=== PATIENT | male | born 1960 ===

== ENCOUNTER → 2017-05-22 | Outpatient (CLI) | payer BC ==
[2017-05-22 09:31] LABS: Basophils % (A) 1 %; CH 31.9; CHCM 33.7; Eosinophils # (A) 0.7 k/uL (0-0.7); Eosinophils % (A) 9 %; HCT 45.4 % (39.0-53.0); HDW 2.52; HGB 15.4 gm/dL (13.0-17.5); Luc # (Auto) 0.17; Luc % (Auto) 2; Lymphocytes % (A) 27 %; MCH 32.3 pg (25.0-35.0); Mean Platelet Volume 8.1; Monocytes # (A) 0.3 k/uL (0-1.0); Monocytes % (A) 5 %; Neutrophils # (A) 4.2 k/uL (1.3-7.7); Neutrophils % (A) 57 %; RBC 4.78 m/uL (4.30-5.90); RDW 12.4 % (11.5-15.5); WBC 7.4 k/uL (3.8-10.6); WBC (Perox) 7.59
[2017-05-22 11:03] LABS: Erythrocyte Sedimentation Rate 14 mm/hr (0-15)
[2017-05-22 11:10] LABS: ALT 43 U/L (21-72); AST 27 U/L (17-59); Alkaline Phosphatase 82 U/L (38-126); Anion Gap 9 mmol/L; Blood Urea Nitrogen 15 mg/dL (9-20); Calcium 9.7 mg/dL (8.4-10.2); Carbon Dioxide 29 mmol/L (22-30); Chloride 105 mmol/L (98-107); Cholesterol 159 mg/dL (<200); Glucose 128 mg/dL (74-99); HDL Cholesterol 55 mg/dL (40-60); Non-African American GFR(MDRD) >60 (>60 ml/min/1.73 sqM); Sodium 143 mmol/L (137-145); Total Bilirubin 0.8 mg/dL (0.2-1.3); Total Protein 7.4 g/dL (6.3-8.2); Triglycerides 102 mg/dL (<150)
[2017-05-22 11:50] LABS: Prostate Specific Antigen 0.99 ng/mL (0.00-4.00)
[2017-05-22 12:49] LABS: Hemoglobin A1C 7.4 % (4.2-6.1)
== END ==
LOC: LABWHC1 09:19
PROVIDERS: ATTEND Internal Medicine
DX: E78.2 Mixed hyperlipidemia (principal); R53.83 Other fatigue; E11.9 Type 2 diabetes mellitus without complications; R39.12 Poor urinary stream
CPT/HCPCS: 36415; 80053; 80061; 83036; 84153; 85025; 85652

== ENCOUNTER → 2017-10-07 | Outpatient (CLI) | payer BC ==
--- NOTE | 2017-10-07 12:57 | XR ---
Left leg HISTORY: Pain 2 views of the left leg on 3 images Bone mineralization and alignment maintained. Osteoarthritic change noted especially in the medial ar m of the left knee. Question soft tissue swelling. IMPRESSION: Osteoarthritis, correlate for soft tissue swelling.
== END | disposition home or self-care (01) ==
LOC: RADXRMAIN 10:50
PROVIDERS: ATTEND Internal Medicine
DX: M17.12 Unilateral primary osteoarthritis, left knee (principal)

== ENCOUNTER → 2017-11-20 | Outpatient (CLI) | payer BC ==
[2017-11-20 18:21] LABS: Hemoglobin A1C 7.4 % (4.0-6.0)
== END | disposition home or self-care (01) ==
LOC: LABWHC1 08:05
PROVIDERS: ATTEND Internal Medicine
DX: E11.9 Type 2 diabetes mellitus without complications (principal); E78.5 Hyperlipidemia, unspecified
CPT/HCPCS: 36415; 82043; 82570; 83036

== ENCOUNTER → 2018-06-11 | Outpatient (CLI) | payer BC, OTHER ==
[2018-06-11 08:53] LABS: HCT 45.3 % (39.0-53.0); HGB 14.7 gm/dL (13.0-17.5); MCH 30.3 pg (25.0-35.0); MCHC 32.4 g/dL (31.0-37.0); MCV 93.7 fL (80.0-100.0); Mean Platelet Volume 7.1; Platelet Count 169 k/uL (150-450); RBC 4.84 m/uL (4.30-5.90); RDW 12.3 % (11.5-15.5); WBC 5.8 k/uL (3.8-10.6)
[2018-06-11 09:09] LABS: ALT 32 U/L (21-72); AST 26 U/L (17-59); Albumin 4.4 g/dL (3.5-5.0); Alkaline Phosphatase 81 U/L (38-126); Anion Gap 7 mmol/L; Blood Urea Nitrogen 12 mg/dL (9-20); Calcium 10.1 mg/dL (8.4-10.2); Carbon Dioxide 32 mmol/L (22-30); Chloride 104 mmol/L (98-107); Cholesterol 142 mg/dL (<200); Glucose 136 mg/dL (74-99); HDL Cholesterol 55 mg/dL (40-60); LDL Cholesterol,Calculated 65 mg/dL (0-99); Sodium 143 mmol/L (137-145); Total Bilirubin 0.9 mg/dL (0.2-1.3); Total Protein 7.2 g/dL (6.3-8.2); Triglycerides 109 mg/dL (<150)
[2018-06-11 09:39] LABS: Prostate Specific Antigen 1.08 ng/mL (0.00-4.00)
[2018-06-11 10:09] LABS: Erythrocyte Sedimentation Rate 9 mm/hr (0-15)
[2018-06-11 17:20] LABS: Hemoglobin A1C 6.8 % (4.0-6.0)
== END | disposition home or self-care (01) ==
LOC: LABWHC1 08:14
PROVIDERS: ATTEND Internal Medicine
DX: E11.9 Type 2 diabetes mellitus without complications (principal); E78.5 Hyperlipidemia, unspecified
CPT/HCPCS: 36415; 80053; 80061; 83036; 84153; 84443; 85027; 85652

== ENCOUNTER 2021-09-16 07:21 | Day surgery (SDC) | payer BC ==
[2021-09-12 18:04] VITALS: BMI 24.2
[~2021-09-16 07:21] MED LIST: LACTATED RINGERS 1,000 ML IV SCH
[2021-09-16 07:49] VITALS: TEMP 97
[2021-09-16 07:58] LABS: Glucose,Whole Blood 147 mg/dL (75-99)
[2021-09-16] MEDS ORDERED: PROPOFOL 10 MG/ML 20 ML VIAL IV ONE (08:07)
[2021-09-16] MEDS ORDERED: MIDAZOLAM 2 MG/2 ML VIAL ONE (08:07)
[2021-09-16] MEDS ORDERED: fentaNYL (PF) 50 MCG/ML 2 ML AMP ONE (08:07)
--- NOTE | 2021-09-16 08:10 | P.GSHP ---
History of Present Illness H&P Date: 09/16/21 Chief Complaint: Epigastric pain, screening Patient here today for upper and lower endoscopy. Patient with mild epigastric pain. Has not had a colonoscopy. No bowel complaints. No family history of colon cancer. Past Medical History Past Medical History: Diabetes Mellitus, Hyperlipidemia History of Any Multi-Drug Resistant Organisms: None Reported Past Surgical History: No Surgical Hx Reported Past Anesthesia/Blood Transfusion Reactions: No Reported Reaction Smoking Status: Never smoker - Past Family History Mother Family Medical History: Cancer Medications and Allergies Home Medications Medication Instructions Recorded Confirmed Type Acetaminophen [Tylenol Extra 500 - 1,000 mg PO DIRECTED PRN 09/12/21 09/16/21 History Strength] Atorvastatin [Lipitor] 10 mg PO DAILY 09/12/21 09/16/21 History Multivit-Min/FA/Lycopen/Lutein 1 tab PO DAILY 09/12/21 09/16/21 History [Centrum Silver Tablet] Naproxen Sodium [Aleve] 220 mg PO BID 09/12/21 09/16/21 History Pioglitazone HCl/Metformin HCl 1 tab PO BID 09/12/21 09/16/21 History [Pioglitazone-Metformin 15-500] Allergies Allergy/AdvReac Type Severity Reaction Status Date / Time No Known Allergies Allergy Verified 09/16/21 07:36 Surgical - Exam Vital Signs Temp Pulse Resp BP Pulse Ox 97 F L 96 18 171/83 97 09/16/21 07:45 09/16/21 07:45 09/16/21 07:45 09/16/21 07:45 09/16/21 07:45 Physical exam: General: Well-developed, well-nourished HEENT: Normocephalic, sclerae nonicteric Abdomen: Nontender, nondistended Extremities: No edema Neuro: Alert and oriented Results - Labs Abnormal Lab Results - Last 24 Hours (Table) 09/16/21 Range/Units 07:57 POC Glucose (mg/dL) 147 H (75-99) mg/dL Assessment and Plan (1) Colon cancer screening Narrative/Plan: Proceed with upper and lower endoscopy Current Visit: Yes Status: Acute Code(s): Z12.11 - ENCOUNTER FOR SCREENING FOR MALIGNANT NEOPLASM OF COLON SNOMED Code(s): 499707843
--- NOTE | 2021-09-16 08:26 | P.PCN ---
Date of Procedure: 09/16/21 Procedure(s) Performed: PREOPERATIVE DIAGNOSIS: Epigastric pain, screening POSTOPERATIVE DIAGNOSIS: Mild gastritis, normal colon PROCEDURE: 1. EGD with biopsy 2. Colonoscopy ANESTHESIA: MAC SURGEON: Alejandro Vernon M.D. SPECIMENS: Antrum ENDOSCOPIC PROCEDURE: The patient was on the endoscopy table in the left decubitus position. The Olympus gastroscope was inserted into the oropharynx and passed under direct visualization to the region of the third portion of the duodenum. From that point the scope was slowly withdrawn inspecting all surfaces carefully. There were no neoplastic inflammatory or polypoid lesions throughout the duodenum. The pylorus was widely patent. The stomach was carefully inspected. There was mild gastritis present. A biopsy of the antrum took place to rule out H. pylori. Retroflexion revealed a normal hiatus. The esophagus was then carefully examined. There were no neoplastic inflammatory or polypoid lesions throughout the visualized esophagus. The patient was kept on the endoscopy table in the left decubitus position. The Olympus colonoscope was inserted into the anus and passed under direct visualization to the base of the cecum. The appendiceal orifice was visualized. From that point the scope was slowly withdrawn inspecting all surfaces carefu lly. There were no neoplastic inflammatory or polypoid lesions throughout the cecum, ascending, transverse, descending, sigmoid and rectum. There was no visible diverticulosis noted. Digital rectal examination was normal. The patient was taken to the recovery room in stable condition per anesthesia guidelines. RECOMMENDATIONS: Resume diet. Await biopsy results. As needed antiacid therapy. Follow-up colonoscopy 10 years.
[2021-09-16 08:29] VITALS: RESP 16
[2021-09-16 08:44] VITALS: BP 131/76; PULSE 70
== END 2021-09-16 08:56 | disposition home or self-care (01) ==
LOC: ORWHC2ENDO 07:21
PROVIDERS: ATTEND Surgery
DX: Z12.11 Encounter for screening for malignant neoplasm of colon (principal); K29.50 Unspecified chronic gastritis without bleeding; E11.9 Type 2 diabetes mellitus without complications; E78.5 Hyperlipidemia, unspecified; Z79.84 Long term (current) use of oral hypoglycemic drugs
CPT/HCPCS: 43239; 88305; J2250; J3010; J2704; G0121

== ENCOUNTER → 2023-12-28 | Outpatient (CLI) | payer BC ==
--- NOTE | 2023-12-28 14:41 | XR ---
EXAMINATION TYPE: XR shoulder complete LT DATE OF EXAM: 12/28/2023 COMPARISON: NONE HISTORY: Pain TECHNIQUE: Three views are submitted. FINDINGS: The osseous structures are intact. There is no acute fracture or dislocation. Moderate AC joint arth ropathy.. IMPRESSION: 1. Moderate AC joint arthropathy.
--- NOTE | 2023-12-28 14:43 | XR ---
EXAMINATION TYPE: XR thoracic spine complete DATE OF EXAM: 12/28/2023 COMPARISON: NONE HISTORY: Pain TECHNIQUE: 3 views submitted FINDINGS: Alignment is anatomic. There is no compression deformities. Multilevel hypertrophic degenerative armen nges spine. Posterior soft tissue ossifications. Atherosclerotic change aorta. Atherosclerotic change s are IMPRESSION: 1. Multilevel moderate hypertrophic degenerative changes
== END | disposition home or self-care (01) ==
LOC: RADXRMAIN 14:12
PROVIDERS: ATTEND Internal Medicine
DX: M19.012 Primary osteoarthritis, left shoulder (principal); M47.814 Spondylosis without myelopathy or radiculopathy, thoracic region
CPT/HCPCS: 72072